=== PATIENT | female | born 1970 | race Caucasian/White ===

== ENCOUNTER 2017-02-07 06:16 | Day surgery (SDC) | payer BC ==
[~2017-02-07] VITALS: Ht 157.5 cm; Wt 65.2 kg
[~2017-02-07 06:16] MED LIST: Buspirone HCl7.5 MG; RANI150 PO
[2017-02-07] MEDS ORDERED: ESOM20 (06:52)
== END 2017-02-07 09:24 | disposition home or self-care (01) ==
LOC: ORSCSDS 06:16
PROVIDERS: Obstetrics & Gynecology
PROC: 0U5B8ZZ Destruction of Endometrium, Via Natural or Artificial Opening Endoscopic (ICD-10-PCS; principal; 2017-02-07 07:30)
DX: N94.6 Dysmenorrhea, unspecified (principal); N84.0 Polyp of corpus uteri; N92.0 Excessive and frequent menstruation with regular cycle; D50.0 Iron deficiency anemia secondary to blood loss (chronic); F41.9 Anxiety disorder, unspecified; K21.9 Gastro-esophageal reflux disease without esophagitis; Z87.891 Personal history of nicotine dependence; Z79.899 Other long term (current) drug therapy
CPT/HCPCS: 88305; J1100; J2250; J2405; J3010; J7120

== ENCOUNTER 2019-12-11 01:41 | Emergency (ER) | payer OTHER ==
[~2019-12-11] VITALS: Ht 154.9 cm; Wt 69.0 kg
[~2019-12-11 01:41] MED LIST changes: +ESOM20
[2019-12-11 02:55] LABS: BASOPHILS ABSOLUTE AUTO 0.07 K/mm3 (0.00-0.23); BASOPHILS PERCENT AUTO 1 % (0-2); EOSINOPHILS ABSOLUTE AUTO 0.19 K/mm3 (0.00-0.68); EOSINOPHILS PERCENT AUTO 2 % (0-6); Hemoglobin 12.3 g/dL (11.5-16.0); IMMATURE GRAN ABSOLUTE AUTO 0.04 K/mm3 (0.00-0.10); IMMATURE GRAN PERCENT AUTO 1 % (0-1); LYMPHOCYTES ABSOLUTE AUTO 2.23 K/mm3 (0.84-5.20); LYMPHOCYTES PERCENT AUTO 28 % (21-46); MONOCYTES ABSOLUTE AUTO 0.65 K/mm3 (0.16-1.47); MONOCYTES PERCENT AUTO 8 % (4-13); Mean Corpuscular HGB 26.8 pg (26.0-34.0); Mean Corpuscular HGB Conc 31.5 g/dL (31.5-36.5); Mean Corpuscular Volume 85 fL (80-100); Mean Platelet Volume 9.2 fL (9.1-12.4); NEUTROPHILS ABSOLUTE AUTO 4.81 K/mm3 (1.96-9.15); NEUTROPHILS PERCENT AUTO 60 % (41-73); Platelet Count 412 K/mm3 (150-400); RDW Coefficient Variation 13.9 % (11.7-14.2); RDW Standard Deviation 42.9 fL (35.1-46.3); Red Blood Cell Count 4.59 M/mm3 (3.80-5.20); White Blood Cell Count 7.99 K/mm3 (4.00-11.30)
[2019-12-11 03:15] LABS: Alanine Aminotransfer (ALT/SGP 37 U/L (12-78); Albumin, Blood 3.9 g/dL (3.4-5.0); Albumin/Globulin Ratio 1.1 (0.8-1.8); Alk Phos 101 U/L (50-136); Anion Gap 6 mmol/L (6-16); Aspartate Aminotrans (AST/SGOT 13 U/L (12-37); Bilirubin, Total 0.3 mg/dL (0.1-1.0); Blood Urea Nitrogen 17 mg/dL (8-24); Bun/Creatinine Ratio 22.2 (12.0-20.0); CO2, Blood 28 mmol/L (21-32); Calcium, Blood 8.5 mg/dL (8.5-10.1); Chloride, Blood 108 mmol/L (98-108); Creatinine, Blood 0.77 mg/dL (0.40-1.00); Globulin, Blood 3.5 g/dL (2.2-4.0); Glomerular Filtration Rate >60 (60-); Glucose, Blood 150 mg/dL (70-99); Potassium, Blood 3.6 mmol/L (3.5-5.5); Sodium, Blood 142 mmol/L (136-145); Total Protein, Blood 7.4 g/dL (6.4-8.2); Troponin I <0.015 ng/mL (0.000-0.040)
== END 2019-12-11 03:40 | disposition home or self-care (01) ==
LOC: ER 01:41
PROVIDERS: Emergency Medicine
DX: K21.9 Gastro-esophageal reflux disease without esophagitis (principal); I10 Essential (primary) hypertension; Z79.899 Other long term (current) drug therapy; Z87.891 Personal history of nicotine dependence
CPT/HCPCS: 36415; 80053; 83690; 84484; 85025; 93005; 93010; 96361; 96374; 99283-25; C9113; J7030

== ENCOUNTER → 2020-03-04 | Outpatient (CLI) | payer OTHER ==
[~2020-03-04] MED LIST changes: +HYDHCL25 PO; +Inderal40 MG PO; +LISI20 PO
[2020-03-04 14:23] LABS: Candida species (DNA Probe) Negative (NEGATIVE); G. vaginalis (DNA Probe) Negative (NEGATIVE); T. vaginalis (DNA Probe) Negative (NEGATIVE)
== END ==
LOC: LAB 09:45 → LAB SHORT 09:45
PROVIDERS: Nurse Practitioner Family
DX: B37.3 Candidiasis of vulva and vagina (principal)
CPT/HCPCS: 87480; 87510; 87660

== ENCOUNTER 2021-11-28 08:09 | Day surgery (SDC) | payer OTHER ==
[~2021-11-28] VITALS: Ht 157.5 cm; Wt 71.9 kg
[2021-11-28] MEDS ORDERED: ERGO400 (08:52)
== END 2021-11-28 11:00 | disposition home or self-care (01) ==
LOC: ORSCSDS 08:09
PROVIDERS: Internal Medicine Gastroenterology
PROC: 0DB68ZX Excision of Stomach, Via Natural or Artificial Opening Endoscopic, Diagnostic (ICD-10-PCS; principal; 2021-11-28 09:30)
PROC: 0DJD8ZZ Inspection of Lower Intestinal Tract, Via Natural or Artificial Opening Endoscopic (ICD-10-PCS; principal; 2021-11-28 09:30)
PROC: 0DB98ZX Excision of Duodenum, Via Natural or Artificial Opening Endoscopic, Diagnostic (ICD-10-PCS; principal; 2021-11-28 09:30)
DX: R10.13 Epigastric pain (principal); K31.7 Polyp of stomach and duodenum; K21.9 Gastro-esophageal reflux disease without esophagitis; K57.30 Diverticulosis of large intestine without perforation or abscess without bleeding; Z12.11 Encounter for screening for malignant neoplasm of colon; I10 Essential (primary) hypertension; Z79.82 Long term (current) use of aspirin; Z79.899 Other long term (current) drug therapy; Z87.891 Personal history of nicotine dependence
CPT/HCPCS: 43239; G0121; 88305; 88342; J2250; J2405; J2704; J7120

== ENCOUNTER 2022-03-15 05:51 | Day surgery (SDC) | payer OTHER ==
[~2022-03-15] VITALS: Ht 152.4 cm; Wt 72.0 kg
[~2022-03-15 05:51] MED LIST changes: +ACET325 PO; +ASPI81CH PO; +BUPR100 PO; +ERGO400; +IBUP200 PO; +ONDA4 PO
--- NOTE | 2022-03-15 06:51 | NUR ---
Ambulatory in Day Surgery WITH STEADY GAIT. History, Chart, Medications and Allergies reviewed before start of procedure. Lungs clear T/O to Auscultation. Patient confirms NPO status and agrees with scheduled surgery. Pre-Op teaching done. Pt verbalizes understanding. Patient States Post-Procedure ride home has been arranged WITH [facility].
--- NOTE | 2022-03-15 07:58 | NUR ---
03/15/22 0758 Anastasia Kirkland NO PRE OP ANTIBIOTICS INDICATED FOR THIS PT. CONFIRMED WITH DR BOONE.
--- NOTE | 2022-03-15 10:09 | NUR ---
PT ARRIVED TO UNIT AT 0915, [id number]. NO DRAINAGE ON SUSANA PAD, VISUALIZED WICK OF VAGINAL PACKING. PT AMBULATED TO RESTROOM AND HAS VOIDED TWICE SINCE ARRIVAL. SHE DENIES PAIN OR NAUSEA AND IS TOLERATING PO. NO WEAKNESS WITH AMBULATION. PRESCRIPTIONS SENT WITH TO [employer] [employer] HELPER PATIENT HAS MET DISCHARGE CRITERIA PER ORDERS. PLAN IS TO FINISH POST OP VITALS AND DISCHARGE TO HOME.
--- NOTE | 2022-03-15 10:30 | NUR ---
PT VOIDED AND PACKING PARTIALLY FELL OUT. REMOVED AT THIS TIME. PT TOLERATED WELL. SMALL AMOUNT OF SANGUINOUS DRAINAGE ON PACKING. PT PLANS TO CALL IF ANY MORE DRAINAGE ON SUSANA PAD.
--- NOTE | 2022-03-15 12:13 | NUR ---
DISCHARGE PT DISCHARGED AT THIS TIME. ESCORTED OUT WITH WHEELCHAIR. PT UP AND IND IN ROOM, VOIDING WELL. PACKING REMOVED PRIOR TO DISCHARGE. PRESCRIPTIONS PICKED UP PRIOR TO DISCHARGE. IV REMOVED WNL. ALL QUESTIONS ASKED. DENIES NAUSEA, TOLERATING PO WELL.
== END 2022-03-15 12:13 | disposition home or self-care (01) ==
LOC: ORSCMMR 05:51 → ORD 07:30 → SURS 09:15 → ORSCMMR 12:13
PROVIDERS: Obstetrics & Gynecology
PROC: 0JQC0ZZ Repair Pelvic Region Subcutaneous Tissue and Fascia, Open Approach (ICD-10-PCS; principal; 2022-03-15 07:30)
DX: N81.6 Rectocele (principal); N94.19 Other specified dyspareunia; L90.0 Lichen sclerosus et atrophicus; I10 Essential (primary) hypertension; K21.9 Gastro-esophageal reflux disease without esophagitis; Z79.899 Other long term (current) drug therapy; Z79.82 Long term (current) use of aspirin
CPT/HCPCS: A9270; J1100; J1885; J2250; J2405; J2704; J3010; J7120

== ENCOUNTER → 2024-02-19 | Outpatient (CLI) | payer OTHER | LOC: LAB SHORT 17:24 → LAB 17:24 | DX: R30.0 Dysuria (principal) | CPT/HCPCS: 87077; 87086; 87186 ==